=== PATIENT | male | born 1975 | race Caucasian/White ===

== ENCOUNTER 2024-03-04 20:51 | Emergency (ER) | payer SELFPAY ==
[2024-03-04 20:58] VITALS: BP 151/89; PULSE 68; RESP 20; TEMP 36.7; O2SAT 98
--- NOTE | 2024-03-04 21:15 | DI.RAD_ITS ---
Exam(s) XR THUMB RT EXAM: XR THUMB RT CLINICAL HISTORY: thumb injury, deformity. TECHNIQUE: 2D digital imaging was performed. COMPARISON: No exams were available for comparison FINDINGS: 3 views There is dislocation of the interphalangeal joint of the thumb. The distal phalanx is dislocated edyta carmen to the head of the proximal phalanx. There is no fracture evident. No radiopaque foreign bodies . No osseous lesions. IMPRESSION: Posterior dislocation at the thumb DIP joint. No fracture. DATA REPOSITORY: RADIATION DOSE DELIVERED:
--- NOTE | 2024-03-04 21:23 | ED.GENADUL_ITS ---
Discharge Plan Disposition Patient Disposition: Home Discharge Details Clinical Impression: Dislocation of thumb Primary Care Provider: Unknown,Unknown ED Provider: Erika Perez Discharge Instructions Additional Instructions: please follow-up with orthopedics for your thumb dislocation keep splint in place for one week return should new concerns arise Referrals: Tomás Win MD [ [facility]] - Discharge Data Discharge Date/Time-TO BE ENTERED AT DEPARTURE: 03/04/24 22:54 HPI General Date/Time Provider Initiated Documentation: 03/04/24 21:01 . HPI Narrative: This 48-year-old male presents after a 10 foot fall off scaffolding landing on his back, hitting his head, and hurting his right thumb. He denies any loss of consciousness and is otherwise reportedly healthy. This happened at 730 this evening. He denies any nausea vomiting or headache. Denies history of coagulopathy. States he would not have come to the emergency department had he not had it for about. General Stated Complaint: Orthopedic TORSTEN: 4 Exam Narrative Exam Narrative: 28-year-old male in no acute distress, approximately 2 inch hematoma noted to the parietal region of right skull, no hemotympanum, pupils equal round reactive to light and accommodation, no cervical spine tenderness or visible signs of trauma, no anterior chest wall tenderness or bruising, bruising noted to left posterior thorax, nontender, lungs clear to auscultation bilaterally, cardiac rate rhythm regular, no abdominal tenderness, no ecchymosis, GCS 15, alert and oriented x 4, ambulatory steady gait, strength and sensation intact distally, tenderness with palpation to right first digit on hand with obvious deformity, neurovascularly intact, no tenderness to right wrist or right elbow. Course Vital Signs Vital signs: Vital Signs Temperature 36.7 C 03/04/24 20:58 Pulse 68 03/04/24 20:58 Respiratory Rate 20 03/04/24 20:58 Blood Pressure 151/89 H 03/04/24 20:58 Pulse Oximetry 98 03/04/24 20:58 Temperature 36.7 C 03/04/24 20:58 Pulse 68 03/04/24 20:58 Respiratory Rate 20 03/04/24 20:58 Respiratory Effort Normal 03/04/24 21:08 Blood Pressure 151/89 H 03/04/24 20:58 Blood Pressure Position Sitting 03/04/24 20:58 Pulse Oximetry 98 03/04/24 20:58 Oxygen Delivery Method Room Air 03/04/24 20:58 Oxygen Flow Rate 0 03/04/24 20:58 Procedures Orthopedic Joint Reduction Joint #1: Time Out Performed: Yes Side: right Joint Reduction Location: finger Analgesia: digital block Local Anesthesia: Lidocaine 1% Amount of anesthesic used (mL): 4 Technique used: direct manipulation Post-reduction neuro exam: intact Post-reduction vascular: intact Post Reduction X-Ray Obtained: Yes Post Reduction X-Ray Results: reduced Additional Comments: For the digital block, lidocaine 1% with epinephrine was accidentally pulled with my order, I injected the lidocaine with epinephrine as I was under the impression that this was plain lidocaine 1%. This was performed in error, there is a risk of ischemia associated with epinephrine injection into her digit, however patient was observed for approximately an hour and a half after injection and capillary refill is intact without any ischemia noted. Medical Decision Making 48-year-old male, alert, oriented x 4, ambulatory steady gait presenting with fall off scaffolding. Patient had a significant trauma, falling from 12 feet and recommendation to order CT head and cervical spine and imaging of patient's chest, patient has declined and is fully competent to make this decision. Patient wears that if he leaves he will leave against medical recommendation. He states that he feels fine did not have loss of consciousness and does not have insurance and does not wish to occur large bill. I did discuss concerns of bleeding in patient's head or collapsed lung, patient again has declined any additional imaging but is agreeable to imaging of his right thumb. Thumb x-ray was reviewed and patient does have a dislocation to his right DIP joint on his thumb. Thumb was reduced, postreduction films confirmatory. Placed in a splint and recommended to follow-up with orthopedics next week. Motrin Tylenol encouraged. Patient discharged home with his son. Quality:SDOH Health Related Social Needs: No Data to Display PFSH All Active Problems (Updated 03/04/24 @ 22:49 by RAJIV Panda) Dislocation of thumb (Acute) Social History Smoking/Tobacco Use Status: Never Smoking risk assessment performed?: Yes Alcohol Intake: current Alcohol Intake frequency: holidays/special occasions only Substance use type: does not use
--- NOTE | 2024-03-04 21:56 | NUR.NOTE ---
Nursing Note:This RN gave report and transfer of care to John Kwon RN at this time
--- NOTE | 2024-03-04 22:00 | DI.RAD_ITS ---
Exam(s) XR THUMB RT POST REDUC EXAM: XR THUMB RT POST REDUC CLINICAL HISTORY: post reduction. TECHNIQUE: 2D digital imaging was performed. COMPARISON: CR,XR XR THUMB RT from 03/04/2024 FINDINGS: Two post reduction views There has been satisfactory realignment of the interphalangeal joint of the thumb. There is a tiny f aint sub mm calcification in the medial aspect of the joint but there are no distinct fractures evide nt. No osseous lesions. No erosions. IMPRESSION: Successful realignment of the DIP joint of the thumb. No significant fractures evident. DATA REPOSITORY: RADIATION DOSE DELIVERED:
[2024-03-04] MEDS: Lidocaine 1% Multi-Dose W/EPI 1/100,000 50 ML VIAL (22:04)
[2024-03-04 22:54] VITALS: BP 148/82; PULSE 56; RESP 16; O2SAT 97
--- NOTE | 2024-03-05 00:19 | DI.VRAD_ITS ---
PROCEDURE INFORMATION: Exam: XR Right Finger(s) Exam date and time: 03/04/2024 9:32 PM Age: 48 years old Clinical indication: Other: Injury, deformity TECHNIQUE: Imaging protocol: Radiologic exam of the right fingers. Views: Minimum 2 views. COMPARISON: No relevant prior studies available. FINDINGS: Bones/joints: There is posterior dislocation at the 1st D IP joint with moderate soft tissue edema. Soft tissues: No fracture IMPRESSION: There is posterior dislocation at the 1st D IP joint with moderate soft tissue edema. No fracture. Dictated and Authenticated by: Preethi Mcallister MD. Ordering:MERLENE James MD
--- NOTE | 2024-03-05 00:20 | DI.VRAD_ITS ---
PROCEDURE INFORMATION: Exam: XR Right Finger(s) Exam date and time: 03/04/2024 10:22 PM Age: 48 years old Clinical indication: Other: Post reduction TECHNIQUE: Imaging protocol: Radiologic exam of the right fingers. Views: Minimum 2 views. COMPARISON: CR XR THUMB RT 03/04/2024 9:32 PM FINDINGS: Bones/joints: Successful reduction of the previously seen 1st D IP dislocation. Moderate soft tissue edema again seen. Soft tissues: No fracture IMPRESSION: 1. Successful reduction of the previously seen 1st D IP dislocation. Moderate soft tissue edema again seen. 2. No fracture. Dictated and Authenticated by: Preethi Mcallister MD. Ordering:MERLENE James MD
--- NOTE | 2024-03-06 08:12 | NUR.NOTE ---
Nursing Note: Accessed chart as part of SQSS investigation.
== END 2024-03-04 22:54 | disposition home or self-care (01) ==
PROVIDERS: Emergency Provider Physician Assistant
DX: S63.124A Dislocation of interphalangeal joint of right thumb, initial encounter (principal); W17.89XA Other fall from one level to another, initial encounter; Y93.H3 Activity, building and construction
CPT/HCPCS: 26770; 73140; 99283; J2004